=== PATIENT | male | born 1930 | race Caucasian/White ===

== ENCOUNTER → 2018-01-07 | Outpatient (CLI) | payer MEDICARE ==
--- NOTE | 2018-01-07 12:24 | Diagnostic Imaging Report ---
Exam: KUB. Clinical History: Calculus of kidney Comparison: None Findings: Frontal view of the abdomen demonstrates a nonobstructive bowel gas pattern with moderate retained stool. Numerous calcifications over the right and left kidney. No acute bone abnormality. Metallic density seen in the lower pelvis. Surgical clips are seen in the gallbladder fossa. Impression: Findings consistent with numerous right and left renal stones. Signed by: Dr. Rodney Bean M.D. on 01/07/2018 12:21 PM
== END ==
LOC: RAD 11:24
PROVIDERS: ATTEND Urology
DX: N20.0 Calculus of kidney (principal)
CPT/HCPCS: 74018

== ENCOUNTER → 2018-02-07 | Day surgery (SDC) | payer MEDICARE ==
[2018-02-05 14:36] LABS: BASOPHILS % 0.1 % (0.0-1.0); EOSINOPHILS % 0.1 % (0.0-6.0); HEMATOCRIT 44.8 % (38.2-49.6); HEMOGLOBIN 15.1 g/dL (14.0-18.0); LYMPHOCYTES # (AUTO) 0.9 (1.0-3.2); MEAN CORPUSCULAR HEMOGLOBIN 31.7 pg (28-32); MEAN CORPUSCULAR HGB CONC 33.7 g/dL (31-35); MEAN CORPUSCULAR VOLUME 94.1 fL (81-99); MONOCYTES # (AUTO) 0.5 (0.2-0.8); MONOCYTES % 7.2 % (4.4-11.3); NEUTROPHILS # (AUTO) 5.3 (2.1-6.9); PLATELET COUNT 143 x10e3/uL (140-360); RED BLOOD COUNT 4.76 x10e6/uL (4.3-5.7); RED CELL DISTRIBUTION WIDTH 13.2 % (11.7-14.4)
--- NOTE | 2018-02-05 15:03 | Diagnostic Imaging Report ---
EXAMINATION: PA and lateral views of the chest. COMPARISON: None CLINICAL HISTORY: Preoperative study for cystoscopy DISCUSSION: The lungs are well-inflated. No focal airspace consolidation, pleural effusion, or pneumothorax. Borderline enlargement of the cardiac silhouette with tortuosity and atherosclerotic calcification of the thoracic aorta. No pulmonary edema. No acute osseous abnormalities. Surgical clips project over the right upper quadrant of the abdomen likely related to prior cholecystectomy. IMPRESSION: No acute cardiopulmonary abnormalities. Signed by: Dr. Thomas Arizmendi M.D. on 02/05/2018 3:00 PM
[~2018-02-07] MED LIST: AMLODIPINE BESYL5 MG PO; ATORVASTATIN CA10 MG PO; CEFTRIAXONE SOD 1 GM VIAL ONE; DEXAMETHASONE SOD PHOS INJ 4 MG/ML VIAL ONE; ELIQUIS PO; FENTANYL CITRATE/PF 100MCG/2 ML INJ ONE; LEVOTHYROXINE112 MCG PO; LIDOCAINE HCL 2% LOCAL INJ 5 ML SDV VIAL INJ ONE; ONDANSETRON HCL INJ 2 MG/ML VIAL ONE; PROPOFOL IV EMULSION 10 MG/ML 20 ML VIAL ONE; SEVOFLURANE INHAL SOLN 250 ML PEN BTL ONE; ULTRAM 50MG50 MG PO
--- OUTSIDE RECORDS SUMMARY | 2018-02-07 05:06 | XMS REPORT ---
Author Author [facility] Address Unknown Phone Unavailable Care Team Providers Care Equipment Analyst Name Role Phone FIDENCIO BRUMFIELD Unavailable Unavailable Problems This patient has no known problems. Allergies, Adverse Reactions, Alerts This patient has no known allergies or adverse reactions. Medications This patient has no known medications. Results Test Description Test Time Test Comments Text Results Atomic Results Result Comments CHEST 2 VIEWS 2018-02-05 14:58:00 [place] [address] Patient Name: ADALID MOSQUEDA MR #: [id number] : 1930 Age/Sex: 87/M Req #: [id number] Adm Physician: Ordered by: FIDENCIO BRUMFIELD MD Report #: [id number] Location: OR Room/Bed: Procedure: [id number] DX/CHEST 2 VIEWS Exam Date: Exam Time: REPORT STATUS: Signed EXAMINATION: PA and lateral views of the chest. COMPARISON: None CLINICAL HISTORY: Preoperative study for cystoscopy DISCUSSION: The lungs are well-inflated. No focal airspace consolidation, pleural effusion, or pneumothorax. Borderline enlargement of the cardiac silhouette with tortuosity and atherosclerotic calcification of the thoracic aorta. No pulmonary edema. No acute osseous abnormalities. Surgical clips project over the right upper quadrant of the abdomen likely related to prior cholecystectomy. IMPRESSION: No acute cardiopulmonary abnormalities. Signed by: Dr. Angeles Suh M.D. on 02/05/2018 3:00 PM Dictated By: ANGELES SUH MD 1500 Transcribed By: HERMINIA on 02/05/18 1500 COPY TO: FIDENCIO BRUMFIELD MD ABDOMEN-1VIEW (KUB) 2018-01-07 12:19:00 [place] [address] Patient Name: ADALID MOSQUEDA MR #: [id number] : 1930 Age/Sex: 87/M Req #: [id number] Adm Physician: Ordered by: FIDENCIO BRUMFIELD MD Report #: [id number] Location: [facility] Room/Bed: Procedure: [id number] DX/ABDOMEN-1VIEW (KUB) Exam Date: 01/07/18 Exam Time: 1150 REPORT STATUS: Signed Exam: KUB. Clinical History: Calculus of kidney Comparison: None Findings: Frontal view of the abdomen demonstrates a nonobstructive bowel gas pattern with moderate retained stool. Numerous calcifications over the right and left kidney. No acute bone abnormality. Metallic density seen in the lower pelvis. Surgical clips are seen in the gallbladder fossa. Impression: Findings consistent with numerous right and left renal stones. Signed by: Dr. Rodney Bean M.D. on 01/07/2018 12:21 PM Dictated By: RODNEY BEAN MD, MD 1221 Transcribed By: HERMINIA on 01/07/18 1221 COPY TO: FIDENCIO BRUMFIELD MD
--- NOTE | 2018-02-07 08:04 | Diagnostic Imaging Report ---
Exam: KUB. Clinical History: Calculus of kidney Comparison: KUB 01/07/18. Findings: Bowel gas partially obscures visualization of the kidneys. Non-obstructive bowel gas pattern. Numerous calcifications over the right and left kidney are again noted. They measure up to 6 mm on the left and 6 mm on the right. No stones are seen overlying the expected location of the ureters or bladder. Calcified phleboliths are present in the pelvis. No acute bone abnormality. Metallic density seen in the lower pelvis likely represent prostate fiducial markers. Surgical clips are seen in the gallbladder fossa. Impression: Similar appearance of numerous bilateral renal stones measuring up to 6 mm. Signed by: Dr. Kuldip Freedman MD on 02/07/2018 8:00 AM
--- NOTE | 2018-02-07 08:06 | Operative Report ---
DATE OF PROCEDURE: February 07, 2018 PREOPERATIVE DIAGNOSIS: Left kidney stone. POSTOPERATIVE DIAGNOSIS: Left kidney stone. OPERATION PERFORMED: Staged shock wave lithotripsy, left side. ANESTHESIA: General. ESTIMATED BLOOD LOSS: Minimal. COMPLICATIONS: None. INDICATIONS: Mr. Tran is an 87-year-old male with a history of left kidney stone. He and I had a long discussion about alternatives, risks and benefits, including doing nothing, shock wave lithotripsy, ureteroscopy, percutaneous surgery and open surgery. He voiced understanding of the options, alternatives, risks, and benefits. He had cardiac clearance and was recommended to stop the Eliquis for 5 days prior and follow the seaming inspector's recommendations. I informed the patient that there is increased risk related. He voiced understanding and elected to proceed. DETAILS OF PROCEDURE: After informed consent was obtained, the patient was taken to the operative suite, placed supine and underwent general anesthesia. The stone was then localized in the X, Y and Z planes. Lithotripsy was performed per the treatment plan. The patient tolerated the procedure well and was transported to the recovery room in excellent condition. SUPERVISION OF FLUOROSCOPY: I was present throughout the entire procedure and I supervised the use of fluoroscopy. No radiologist was present. Job#: [id number] [employer]
[2018-02-07 08:50] VITALS: BP 151/91
== END | disposition home or self-care (01) ==
LOC: OR 05:00
PROVIDERS: ATTEND Urology
DX: N20.0 Calculus of kidney (principal); N39.0 Urinary tract infection, site not specified; N52.9 Male erectile dysfunction, unspecified; I10 Essential (primary) hypertension; I48.91 Unspecified atrial fibrillation; E03.9 Hypothyroidism, unspecified; Z01.810 Encounter for preprocedural cardiovascular examination; Z01.812 Encounter for preprocedural laboratory examination; Z01.818 Encounter for other preprocedural examination; Z79.02 Long term (current) use of antithrombotics/antiplatelets; Z68.31 Body mass index [BMI] 31.0-31.9, adult; Z85.46 Personal history of malignant neoplasm of prostate; Z84.1 Family history of disorders of kidney and ureter
CPT/HCPCS: 36415; 50590; 71046; 74018; 85025; 93005; J0696; J1100; J2001; J2405; J2704

== ENCOUNTER → 2018-04-22 | Outpatient (CLI) | payer MEDICARE ==
[~2018-04-22] MED LIST changes: -CEFTRIAXONE SOD 1 GM VIAL ONE; -DEXAMETHASONE SOD PHOS INJ 4 MG/ML VIAL ONE; -FENTANYL CITRATE/PF 100MCG/2 ML INJ ONE; -LIDOCAINE HCL 2% LOCAL INJ 5 ML SDV VIAL INJ ONE; -ONDANSETRON HCL INJ 2 MG/ML VIAL ONE; -PROPOFOL IV EMULSION 10 MG/ML 20 ML VIAL ONE; -SEVOFLURANE INHAL SOLN 250 ML PEN BTL ONE
--- NOTE | 2018-04-22 15:41 | Diagnostic Imaging Report ---
Exam: Abdominal radiograph History: Renal calculi Comparison: 02/07/2018 Findings: As before, there are multiple calculi projecting over both kidneys, with the largest individual right upper pole calculus measuring 8 mm and the largest individual left upper pole calculus measuring 8 mm. Overall, stone burden is grossly unchanged relative to February 25, 2018. 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 Bowel gas pattern is nonobstructive. 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 Impression: Grossly stable bilateral renal stone burden relative to 02/07/2018 as detailed above. Signed by: Dr. Thomas Arizmendi M.D. on 04/22/2018 3:38 PM
== END ==
LOC: RAD 13:55
PROVIDERS: ATTEND Urology
DX: N20.0 Calculus of kidney (principal)
CPT/HCPCS: 74018